=== PATIENT | male | born 1990 | race Caucasian/White ===

== ENCOUNTER 2017-12-26 18:01 | Emergency (ER) | payer MEDICAID, OTHER ==
[2017-12-26] MEDS ORDERED: Lidocaine 1% 20 ML MDV INJECT ONE (18:05)
[2017-12-26] MEDS ORDERED: Diphtheria,Pertussis(Acell),Tetanus Vaccine 0.5 ML Syringe IM ONE (18:06)
--- NOTE | 2017-12-26 18:07 | EDM.PDOC ---
ED HPI GENERAL MEDICAL PROBLEM - General Chief Complaint: Upper Extremity Injury/Pain Stated Complaint: FISH HOOK IN RIGHT THUMB Time Seen by Provider: 12/26/17 18:07 Source of Information: Reports: Patient - History of Present Illness INITIAL COMMENTS - FREE TEXT/NARRATIVE: HISTORY AND PHYSICAL: History of present illness: [Patient with diabetes presents with a fishhook in his left thumb Occurred just prior to arrival No fever nausea vomiting chills sweats Review of systems: As per history of present illness and below otherwise all systems reviewed and negative. Past medical history: As per history of present illness and as reviewed below otherwise noncontributory. Surgical history: As per history of present illness and as reviewed below otherwise noncontributory. Social history: No reported history of drug or alcohol abuse. Family history: As per history of present illness and as reviewed below otherwise noncontributory. Physical exam: HEENT: Atraumatic, normocephalic, pupils reactive, negative for conjunctival pallor or scleral icterus, mucous membranes moist, throat clear, neck supple, nontender, trachea midline. Lungs: Clear to auscultation, breath sounds equal bilaterally, chest nontender. Heart: S1S2, regular, negative for clicks, rubs, or JVD. Abdomen: Soft, nondistended, nontender. Negative for masses or hepatosplenomegaly. Negative for costovertebral tenderness. Pelvis: Stable nontender. Genitourinary: Deferred. Rectal: Deferred. Extremities: Atraumatic, negative for cords or calf pain. Neurovascular unremarkable. [place] in left thumb distal tip noted Neuro: Awake, alert, oriented. Cranial nerves II through XII unremarkable. Cerebellum unremarkable. Motor and sensory unremarkable throughout. Exam nonfocal. Diagnostics: [Clinical ] Therapeutics: [T dap 1 mL lidocaine Keflex Bacitracin and bandage ] Impression: [ fishhook removal -no complication no complaint ] Definitive disposition and diagnosis as appropriate pending reevaluation and review of above. Right Hand Pain Score (Numeric/FACES): 7 - Related Data Allergies Allergy/AdvReac Type Severity Reaction Status Date / Time No Known Allergies Allergy Verified 12/26/17 18:12 Home Meds: Home Meds Insulin Glargine,Hum.Rec.Anlog [Toandrea Villaseñorostwilma] 45 units SQ QPM 05/27/16 [ History] Insulin Lispro [Humalog] 10 units SQ ACLUNCH 12/26/17 [History] Insulin Lispro [Humalog] 12 units SQ PCBREAKFAST 12/26/17 [History] Insulin Lispro [Humalog] 16 units SQ ACDINNER 12/26/17 [History] Pravastatin Sodium 20 mg PO DAILY 12/26/17 [History] Past Medical History Neurological History: Reports: Seizure Endocrine/Metabolic History: Reports: Diabetes, Type I Social & Family History - Family History Family Medical History: Noncontributory Review of Systems - Review of Systems Review Of Systems: See Below ED EXAM, GENERAL - Physical Exam Exam: See Below Course - Vital Signs Last Recorded V/S: Last Vital Signs Temp 98.4 F 12/26/17 18:17 Pulse 80 12/26/17 18:17 Resp 18 12/26/17 18:17 BP 111/71 12/26/17 18:17 Pulse Ox 99 12/26/17 18:17 - Orders/Labs/Meds Orders: Active Orders 24 hr Category Date Time Status Vaccines to be Administered [RC] PER UNIT ROUTINE Care 12/26/17 18:07 Active Meds: Medications Discontinued Medications Generic Name Dose Route Start Last Admin Trade Name Shaun PRN Reason Stop Dose Admin Bacitracin 1 dose 12/26/17 18:27 Bacitracin Oint 1 Gm TOP 12/26/17 18:28 ONETIME ONE Diphtheria/Tetanus/Acell Pertussis 0.5 ml 12/26/17 18:06 Adacel IM 12/26/17 18:07 .ONCE ONE Lidocaine HCl Confirm 12/26/17 18:09 12/26/17 18:26 Xylocaine-Mpf 1% Administered 12/26/17 18:10 Not Given Dose 5 mls @ as directed .ROUTE .STK-MED ONE Lidocaine HCl 20 ml 12/26/17 18:05 12/26/17 18:27 Xylocaine 1% INJECT 12/26/17 18:06 Not Given ONETIME ONE Lidocaine HCl 5 ml 12/26/17 18:08 12/26/17 18:26 Xylocaine-Mpf 1% INJECT 12/26/17 18:09 5 ml ONETIME ONE Administration Departure - Departure Time of Disposition: 18:30 Disposition: Home, Self-Care 01 Condition: Good Clinical Impression: Ravanna injury to finger - Discharge Information Referrals: PCP,None [Primary Care Provider] - Forms: ED Department Discharge Additional Instructions: The following information is given to patients seen in the emergency department who are being discharged to home. This information is to outline your options for follow-up care. We provide all patients seen in our emergency department with a follow-up referral. The need for follow-up, as well as the timing and circumstances, are variable depending upon the specifics of your emergency department visit. If you don't have a primary care physician on staff, we will provide you with a referral. We always advise you to contact your personal physician following an emergency department visit to inform them of the circumstance of the visit and for follow-up with them and/or the need for any referrals to a consulting specialist. The emergency department will also refer you to a specialist when appropriate. This referral assures that you have the opportunity for follow-up care with a specialist. All of these measure are taken in an effort to provide you with optimal care, which includes your follow-up. Under all circumstances we always encourage you to contact your private physician who remains a resource for coordinating your care. When calling for follow-up care, please make the office aware that this follow-up is from your recent emergency room visit. If for any reason you are refused follow-up, please contact the [facility] emergency department at and asked to speak to the emergency department charge nurse. - My Orders Last 24 Hours: My Active Orders 12/26/17 18:07 Vaccines to be Administered [RC] PER UNIT ROUTINE - Assessment/Plan Last 24 Hours: My Active Orders 12/26/17 18:07 Vaccines to be Administered [RC] PER UNIT ROUTINE
[2017-12-26 18:26] VITALS: BP 111/71
[2017-12-26] MEDS ORDERED: Bacitracin Oint 1 GM U/D Packet TOP ONE (18:27)
== END 2017-12-26 18:42 | disposition home or self-care (01) ==
LOC: MW.ED 18:01
DX: S60.352A Superficial foreign body of left thumb, initial encounter (principal); E10.9 Type 1 diabetes mellitus without complications; Z23 Encounter for immunization; W45.8XXA Other foreign body or object entering through skin, initial encounter
CPT/HCPCS: 90471; 90715; 99282-25; 99283